=== PATIENT | male | born 1955 | race Caucasian/White ===

== ENCOUNTER 2016-06-28 10:47 | Day surgery (SDC) | payer OTHER ==
[2016-06-28] VITALS (13 sets, daily range): BP systolic 147–173; BP diastolic 82–106; PULSE 60–74; RESP 12–21; O2SAT 92–98
[~2016-06-28] VITALS: Ht 175.3 cm; Wt 81.6 kg
[~2016-06-28 10:47] MED LIST: ASPI81TA2 PO; MELO15TA14 PO; SMV40T PO; TAM4 PO
[2016-06-28] MEDS ORDERED: Propofol 10,000 mCg/mL 20 mL Inj ONE (10:48)
[2016-06-28] MEDS ORDERED: Ondansetron 2 mg/mL 2 mL Inj ONE (10:48)
[2016-06-28] MEDS ORDERED: Dexamethasone 4 mg/mL Inj ONE (10:48)
[2016-06-28] MEDS ORDERED: fentaNYL-PF 50 mCg/mL 2 mL Inj ONE (10:48)
[2016-06-28] MEDS ORDERED: Lidocaine PF 1% 30 mL Inj ONE (10:48)
[2016-06-28] MEDS ORDERED: MELO-253 PO (11:23)
[2016-06-28] MEDS ORDERED: SIMV40TA5 PO (11:23)
[2016-06-28] MEDS ORDERED: TAMS0.4C98 PO (11:23)
[2016-06-28] MEDS ORDERED: ASPI-973 PO (11:23)
[2016-06-28] MEDS ORDERED: Lactated Ringer's 1,000 ML IV ONE (11:39)
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
[2016-06-28] MEDS ORDERED: Lactated Ringer's 1,000 ML IV SCH (13:14)
[2016-06-28] MEDS ORDERED: Lactated Ringer's 500 ML IV PRN (13:14)
[2016-06-28] MEDS ORDERED: Atropine 0.4 mg/mL Inj IVPUSH PRN (13:15)
[2016-06-28] MEDS ORDERED: HYDROmorphone 1 mg/mL Inj IVPUSH PRN (13:15)
[2016-06-28] MEDS ORDERED: Labetalol 5 mg/mL 4 mL Inj IV PRN (13:15)
[2016-06-28] MEDS ORDERED: EPHEDrine Sulfate 50 mg/mL Inj IM PRN (13:15)
[2016-06-28] MEDS ORDERED: fentaNYL-PF 50 mCg/mL 2 mL Inj IVPUSH PRN (13:15)
[2016-06-28] MEDS ORDERED: Ondansetron 2 mg/mL 2 mL Inj IVPUSH PRN (13:15)
[2016-06-28] MEDS ORDERED: hydrALAZINE 20 mg/mL Inj IVPUSH PRN (13:15)
[2016-06-28] MEDS ORDERED: EPHEDrine Sulfate 50 mg/mL Inj IVPUSH PRN (13:15)
[2016-06-28] MEDS ORDERED: Phenylephrine 10,000 mCg/mL Inj IVPUSH PRN (13:15)
[2016-06-28] MEDS ORDERED: Furosemide 10 mg/mL 2 mL Inj IV ONE (13:55)
--- NOTE | 2016-06-28 14:30 | OP ---
[address] [address] OPERATIVE REPORT PATIENT: LOYDA DUMONT : 1955 MR#: [id number] ADMIT: 06/28/2016 JOB ID: [id number] DATE OF SURGERY: 06/28/2016 PREOPERATIVE DIAGNOSIS(ES): 1. Left renal colic. 2. Left renal calculi x2 (7 mm each). POSTOPERATIVE DIAGNOSIS(ES): 1. Left renal colic. 2. Left renal calculi x2 (7 mm each). OPERATION PERFORMED: Left extracorporeal shock wave lithotripsy (maximal power of 5.0 x 2500 shocks). SURGEON: Good Corey MD ANESTHESIOLOGIST: Anil Bach MD ANESTHESIA: General. PROCEDURE SUMMARY: The patient was positioned supine on the lithotripsy gurney and the above-described stone was localized in the X, Y and Z plane. Lithotripsy was then commenced at minimal power level and gradually increased to maximum power level. The stone and its fragments were relocalized numerous times throughout the case using C-arm radiography. The procedure was then terminated. The patient was awakened, transferred to the gurney and transferred to the recovery area awake in stable condition. The patient tolerated the procedure well.
--- NOTE | 2016-06-28 14:43 | PCM.ANEP1 ---
Post Anesthesia Phase 1 PACU Phase 1 Assessment Date of Service: Jun 28, 2016 Vital Signs Vital Signs Date Time Temp Pulse Resp B/P Pulse Ox O2 Delivery O2 Flow Rate FiO2 06/28/16 14:35 36.3 68 16 161/97 92 Room Air 06/28/16 14:30 73 21 154/84 93 Room Air 06/28/16 14:25 64 14 152/85 94 Room Air 06/28/16 14:20 36.5 62 14 155/88 96 Room Air 06/28/16 14:15 69 15 159/82 93 Room Air 06/28/16 14:10 70 13 148/85 93 Room Air 06/28/16 14:05 74 16 147/84 95 Room Air 06/28/16 14:00 60 12 158/85 98 Simple Mask 8 06/28/16 13:59 36.3 67 15 159/85 98 Simple Mask 8 06/28/16 11:15 35.6 65 18 173/89 96 Room Air Anesthetic Administered: GA Level of Alertness: Awake, talking M[place]ILLA's with Equal Strength: Yes Pain: Yes Pain Scale Score: 2 Nausea or Vomiting: No Oxygen Delivery: Room Air Lungs: Clear to Auscultation, Normal Air Movement Dermatome Level: Full Sensation Anil Winn MD Jun 28, 2016 14:43
--- NOTE | 2016-06-29 06:32 | PCM.ANEP2 ---
Post Anesthesia Evaluation ASA/CMS Post Anesthesia Date of Service: Jun 28, 2016 VS in Patient's Normal Range?: Yes Resp Stable; Airway Patent?: Yes CV Function & Hydration Stable: Yes Mental Status Recovered?: Yes Pain control Satisfactory?: Yes N/V Control Satisfactory?: Yes Anil Winn MD Jun 29, 2016 06:32
== END 2016-06-28 23:59 | disposition home or self-care (01) ==
LOC: SAS 10:47
PROVIDERS: ATTEND Specialist
DX: N20.0 Calculus of kidney (principal); N40.1 Benign prostatic hyperplasia with lower urinary tract symptoms; R39.14 Feeling of incomplete bladder emptying; Z79.82 Long term (current) use of aspirin
CPT/HCPCS: 50590; J0131; J1100; J1940; J2405; J3010; J7120